=== PATIENT | female | born 1985 | race African-American/Black ===

== ENCOUNTER 2018-09-02 11:45 | Emergency (ER) | payer OTHER ==
[2018-09-02 11:57] VITALS: BP 136/99; PULSE 86; TEMP 98.5; BMI 28.3
[2018-09-02] MEDS ORDERED: ALBUTEROL SO4 2.5/IPRATROPIUM 0.5 INH SOL 3 ML VIAL.NEB. NEB ONE ×2 (12:35→12:39)
[2018-09-02] MEDS ORDERED: predniSONE 20 MG TABLET (UD) PO ONE (12:36)
[2018-09-02] MEDS ORDERED: predniSONE 20 MG TABLET (UD) ONE (12:39)
[2018-09-02] MEDS ORDERED: IBUPROFEN 400 MG TABLET (FP) PO ONE ×2 (12:44→12:56)
--- NOTE | 2018-09-02 12:44 | PDOC ---
History of Present Illness - General Chief Complaint: Cold Symptoms Stated Complaint: BODY ACHES Time Seen by Provider: 09/02/18 12:28 History Source: Patient Exam Limitations: No Limitations - History of Present Illness Initial Comments: 09/02/18 12:36 Patient is here with complaints of weeks of shortness of breath, wheezing, and postnasal drainage. States had been seen approximately 4 months ago by her provider who prescribed her an albuterol inhaler which has helped her however has run out. Did not follow-up with him. Denies fever, has intermittent phlegm production, Timing/Duration: reports: getting worse Severity: reports: mild, moderate Past History - Travel Traveled outside of the country in the last 30 days: No Close contact w/someone who was outside of country & ill: No - Past Medical History Allergies/Adverse Reactions: Allergies Allergy/AdvReac Type Severity Reaction Status Date / Time No Known Drug Allergies Allergy Verified 09/02/18 11:57 Home Medications: Ambulatory Orders NK [No Known Home Medication] 09/02/18 Anemia: No Asthma: No Cancer: No Cardiac Disorders: No CVA: No COPD: No CHF: No Dementia: No Diabetes: No GI Disorders: No Disorders: No HTN: No Hypercholesterolemia: No Kidney Stones: No Liver Disease: No Seizures: Yes Thyroid Disease: Yes (post thyroiditis? has not beenworked up) - Reproductive History PID: No - Suicide/Smoking/Psychosocial Hx Smoking History: Never smoked Have you smoked in the past 12 months: Yes Number of Cigarettes Smoked Daily: 7 'Breaking Loose' booklet given: 11/06/13 Hx Alcohol Use: Yes (drinking since 18 yo) Drug/Substance Use Hx: Yes (PCP,COcaine since 18 years old.) Substance Use Type: Alcohol, Cocaine Hx Substance Use Treatment: Yes (2 intermediate designer treatments,longest clean time 2 years) Respiratory Specific PMHX - Complaint Specific PMHX TB (Tuberculosis): No Review of Systems - Review of Systems Able to Perform ROS?: Yes Is the patient limited Spanish proficient: Yes Constitutional: Yes: Symptoms Reported, See HPI, Malaise. No: Fever Respiratory: Yes: Symptoms reported, See HPI, Cough, Shortness of Breath, Wheezing Cardiac (ROS): No: Symptoms Reported ABD/GI: No: Symptoms Reported : No: Symptoms Reported Integumentary: No: Symptoms Reported Neurological: No: Symptoms reported All Other Systems: Reviewed and Negative *Physical Exam - Vital Signs Last Vital Signs Temp Pulse Resp BP Pulse Ox 98.5 F 86 18 136/99 100 09/02/18 11:55 09/02/18 11:55 09/02/18 11:55 09/02/18 11:55 09/02/18 11:55 - Physical Exam General Appearance: Yes: Nourished, Appropriately Dressed HEENT: positive: JOSE, TMs Normal (congested but landmarks easily visualized), Nasal Congestion Neck: positive: Supple, Thyromegaly (with mild tenderness). negative: Tender, Lymphadenopathy (R), Lymphadenopathy (L) Respiratory/Chest: positive: Wheezing (coarse expiratory wheezing throughout, worse on the right than the left). negative: Lungs Clear, Normal Breath Sounds Cardiovascular: positive: Regular Rate Gastrointestinal/Abdominal: positive: Normal Bowel Sounds, Soft. negative: Tender Musculoskeletal: positive: Normal Inspection Extremity: positive: Normal Capillary Refill, Normal Inspection Integumentary: positive: Dry, Warm, Pale Neurologic: positive: burlap spreader II-XII NML intact, Fully Oriented, Alert, Normal Mood/ Affect, Normal Response, Motor Strength 5/5 Progress Note - Progress Note Progress Note: ALLERGIC rhinitis, much improved after DuoNeb, prednisone. We will recommend follow-up with PMD for thyroid testing *DC/Admit/Observation/Transfer Diagnosis at time of Disposition: Allergic rhinitis Qualifiers: Allergic rhinitis trigger: unspecified Allergic rhinitis seasonality: unspecified Qualified Code(s): J30.9 - Allergic rhinitis, unspecified - Discharge Dispostion Disposition: HOME Condition at time of disposition: Stable Decision to Admit order: No - Referrals - Patient Instructions Printed Discharge Instructions: DI for Allergic Rhinitis Additional Instructions: Rest, drink lots of fluids: Teas, water, soups Saltwater gargles. Consider humidifier in room at night Steamy showers/seem to face break up mucus Avoid contact with allergens, exposure to pollens, close windows on a windy day Lots of handwashing and good hygiene Continue [id number] medications for symptomatic relief- may use allergic eyedrops for itching I Continue albuterol inhaler, 2 puffs 4 times a day for the next 3 days then as needed Prednisone course 40 mg daily for the next 4 days Continue antihistamines daily until pollen season is over; Zyrtec, Claritin, Bette during the daytime and Benadryl at nighttime as will make sleepy Tylenol or Motrin for fever and pain Followup with private physician in one to 2 days as needed Consider following up with an underwriter/mortgage professional for skin testing and possible allergy shots Return to emergency department for worsened symptoms, fevers, dehydration - Post Discharge Activity Forms/Work/School Notes: Back to Work
== END 2018-09-02 13:05 | disposition home or self-care (01) ==
LOC: JERFT 11:45
PROC: 3E0F7GC Introduction of Other Therapeutic Substance into Respiratory Tract, Via Natural or Artificial Opening (ICD-10-PCS; principal; 2018-09-02)
DX: J30.9 Allergic rhinitis, unspecified (principal)
CPT/HCPCS: 94640; 99281-25

== ENCOUNTER 2018-10-14 01:53 | Emergency (ER) | payer OTHER | END 2018-10-14 09:03 | disposition home or self-care (01) | LOC: JER 01:53 ==

== ENCOUNTER 2019-01-26 19:07 | Emergency (ER) | payer OTHER ==
--- NOTE | 2019-01-26 19:27 | PDOC ---
Rapid Medical Evaluation Chief Complaint: Asthma Time Seen by Provider: 01/26/19 19:26 Medical Evaluation: Allergies Allergy/AdvReac Type Severity Reaction Status Date / Time No Known Drug Allergies Allergy Verified 01/26/19 19:26 Vital Signs Temp Pulse Resp BP Pulse Ox 98.2 F 90 17 121/88 96 01/26/19 19:22 01/26/19 19:22 01/26/19 19:22 01/26/19 19:22 01/26/19 19:22 01/26/19 19:27 I have performed a brief in-person evaluation of this patient. The patient presents with a chief complaint of: asthma Pertinent physical exam findings:stable and in NAD, non-focal I have ordered the following: provider to determine The patient will proceed to the ED for further evaluation.
[2019-01-26 19:28] VITALS: BP 121/88; PULSE 90; TEMP 98.2; BMI 31.1
[2019-01-26] MEDS ORDERED: DEXAMETHASONE LIQUID 0.5 MG/5 ML PO ONE (21:02)
[2019-01-26] MEDS ORDERED: ALBUTEROL SO4 2.5/IPRATROPIUM 0.5 INH SOL 3 ML VIAL.NEB. NEB ONE (21:08)
[2019-01-26] MEDS ORDERED: DEXAMETHASONE SOD PHOSPHATE 10 MG/1 ML VIAL ONE (21:08)
[2019-01-26] MEDS: ALBUTEROL SO4 2.5/IPRATROPIUM 0.5 INH SOL 3 ML VIAL.NEB. NEB SCH ×2 (21:11→21:41)
--- NOTE | 2019-01-26 22:16 | PDOC ---
History of Present Illness - General Chief Complaint: Asthma Stated Complaint: ASTHMA Time Seen by Provider: 01/26/19 19:26 - History of Present Illness Initial Comments: 01/26/19 22:14 33-year-old female with a past medical history of asthma presents for exacerbation of symptoms unrelieved with her home nebulizer over the last day Past History - Past Medical History Allergies/Adverse Reactions: Allergies Allergy/AdvReac Type Severity Reaction Status Date / Time No Known Drug Allergies Allergy Verified 01/26/19 19:26 Home Medications: Ambulatory Orders Albuterol 0.083% Nebulizer Dominique [Ventolin 0.083%] 1 neb NEB QID PRN 10/14/18 Albuterol Sulfate Inhaler - [Ventolin Hfa Inhaler -] 1 - 2 inh PO Q4H PRN Albuterol 0.083% Nebulizer Dominique [Ventolin 0.083% Nebulizer Soln -] 1 neb NEB Q4H PRN #20 vial 01/26/19 Anemia: No Asthma: Yes Cancer: No Cardiac Disorders: No CVA: No COPD: No CHF: No Dementia: No Diabetes: No GI Disorders: No Disorders: No HTN: No Hypercholesterolemia: No Kidney Stones: No Liver Disease: No Seizures: Yes Thyroid Disease: Yes - Reproductive History PID: No - Psycho Social/Smoking Cessation Hx Smoking History: Current every day smoker Have you smoked in the past 12 months: Yes Number of Cigarettes Smoked Daily: 5 Information on smoking cessation initiated: No 'Breaking Loose' booklet given: 11/06/13 Hx Alcohol Use: Yes Drug/Substance Use Hx: Yes Substance Use Type: Alcohol, Cocaine Hx Substance Use Treatment: Yes (2 termite inspector treatments,longest clean time 2 years) Review of Systems - Review of Systems Constitutional: No: Fever Respiratory: Yes: Shortness of Breath, Wheezing *Physical Exam - Vital Signs Last Vital Signs Temp Pulse Resp BP Pulse Ox 98.2 F 90 17 121/88 96 01/26/19 19:22 01/26/19 19:22 01/26/19 19:22 01/26/19 19:22 01/26/19 19:22 - Physical Exam Comments: 01/26/19 22:14 GENERAL: The patient is awake, alert, and fully oriented, in no acute distress. HEAD: Normal with no signs of trauma. EYES: sclera anicteric, conjunctiva clear. ENT: Ears normal NECK: Normal range of motion LUNGS: Breath sounds equal, clear to auscultation bilaterally. No wheezes, and no crackles. Tight breath sounds bilateral bases HEART: S1 and S2 without murmur, rub or gallop. ABDOMEN: Soft, nontender, normoactive bowel sounds. No guarding, no rebound. No masses. EXTREMITIES: Normal range of motion, no edema. No clubbing or cyanosis. No cords, erythema, or tenderness. NEUROLOGICAL: Cranial nerves II through XII grossly intact. Normal speech, normal gait. PSYCH: Normal mood, normal affect. SKIN: Warm, Dry, normal turgor, no rashes or lesions noted. ED Treatment Course - Medications Given in the ED: ED Medications Discontinued Medications Generic Name Dose Route Start Last Admin Trade Name Freq PRN Reason Stop Dose Admin Albuterol/Ipratropium 1 amp 01/26/19 21:15 01/26/19 21:41 Duoneb - NEB 01/26/19 22:01 1 amp Q15M OLIVER Administration Dexamethasone 10 mg 01/26/19 21:02 01/26/19 21:11 Decadron Liquid - PO 01/26/19 21:03 10 mg ONCE ONE Administration Medical Decision Making - Medical Decision Making 01/26/19 22:15 Full equal and clear breath sounds after for duo nebs and Decadron Discharge - Discharge Information Problems reviewed: Yes Clinical Impression/Diagnosis: Asthma exacerbation Condition: Disposition: HOME - Admission No - Follow up/Referral Referrals: Kuldip Cooper MD, [Staff Physician] - - Patient Discharge Instructions Patient Printed Discharge Instructions: Asthma -- Adult Additional Instructions: Your nebulizer medication was refilled. Return to the emergency room for worsening symptoms. Without fail please follow-up with pulmonology in 1 to 2 days for further evaluation and treatment options. - Post Discharge Activity
== END 2019-01-26 22:22 | disposition home or self-care (01) ==
LOC: JER 19:07
PROC: 3E0F7GC Introduction of Other Therapeutic Substance into Respiratory Tract, Via Natural or Artificial Opening (ICD-10-PCS; principal; 2019-01-26)
DX: J45.901 Unspecified asthma with (acute) exacerbation (principal); E07.9 Disorder of thyroid, unspecified; Z86.69 Personal history of other diseases of the nervous system and sense organs; F17.210 Nicotine dependence, cigarettes, uncomplicated
CPT/HCPCS: 99281-25

== ENCOUNTER 2020-06-15 20:41 | Emergency (ER) | payer OTHER ==
[2020-06-15 20:50] VITALS: BP 138/96; PULSE 92; TEMP 98.7; BMI 25.7
[2020-06-15] MEDS ORDERED: KETOROLAC TROMETHAMINE 60 MG/2 ML VIAL IM ONE (21:28)
[2020-06-15] MEDS ORDERED: KETOROLAC TROMETHAMINE 60 MG/2 ML VIAL ONE (21:30)
== END 2020-06-15 21:39 | disposition home or self-care (01) ==
LOC: FER 20:41
PROC: 3E0233Z Introduction of Anti-inflammatory into Muscle, Percutaneous Approach (ICD-10-PCS; principal; 2020-06-15)
DX: S46.011A Strain of muscle(s) and tendon(s) of the rotator cuff of right shoulder, initial encounter (principal)
CPT/HCPCS: 73030-TC-RT-FY; 99284-25